=== PATIENT | male | born 1955 | race Caucasian/White ===

== ENCOUNTER 2024-05-24 13:24 | Emergency (ER) | payer OTHER ==
[2024-05-24] MEDS ORDERED: NA CHLORIDE 0.9% 1,000 ML ONE (14:16)
[2024-05-24] MEDS ORDERED: FOLIC ACID 5 MG/ML VIAL ONE (14:43)
[2024-05-24 14:46] LABS: Absolute Eosinophils 0.1 K/uL (0-0.5); Absolute Lymphocytes (CBC) 1.1 K/uL (0.7-4.9); Absolute Monocytes 0.6 K/uL (0.1-1.3); Basophils % 0.7 % (0-1.3); Eosinophils % 1.1 % (0-4.4); Hematocrit 42.5 % (39.6-49.0); Hemoglobin 14.4 g/dL (13.6-17.9); Lymphocytes % 23.2 % (15.3-44.8); MCH 32.1 pg (27.0-35.0); MCHC 33.8 g/dL (32.0-36.0); MCV 95.1 fL (80-100); MPV 8.5 fL (7.6-11.3); Monocytes % 13.3 % (3.3-12.3); Neutrophils % 61.7 % (41.7-73.7); Nucleated Red Blood Cells % 0.1 % (0-0); Platelets 160 thou/uL (152-406); RBC Red Blood Cell Count 4.47 M/uL (4.33-5.43); Red Cell Distribution Width 13.5 % (12.1-15.2)
[2024-05-24 14:48] LABS: PT Prothrombin Time 12.3 SECONDS (9.4-12.5); Protime INR 1.1
[2024-05-24 15:02] LABS: SARS-CoV-2 Antigen CONTROL BLUE LINE VIS/BG OK; SARS-CoV-2 Antigen Rapid Res Negative (Negative)
[2024-05-24 15:04] LABS: ALT/SGPT 19 U/L (16-61); AST/SGOT 15 U/L (15-37); Albumin 3.3 g/dL (3.4-5.0); Alkaline Phosphatase 109 U/L (45-117); Anion Gap 8.1 mEq/L (5.0-15.0); BUN Blood Urea Nitrogen 28 mg/dL (7-18); Bicarbonate 25 mEq/L (21-32); Bilirubin Total 0.4 mg/dL (0.2-1.0); Globulin 3.4 g/dL (2.3-3.5); Glomerular Filtration Rate 84 ml/min (=/>90); Glucose Level 124 mg/dL (74-106); Lipase 29 U/L (13-75); Magnesium 2.1 mg/dL (1.6-2.4); NT PRO-BNP 59 pg/mL (<125); Potassium 4.1 mEq/L (3.5-5.1); Protein, Total 6.7 g/dL (6.4-8.2); Sodium Level 137 mEq/L (136-145); Troponin High Sensitivity 7.1 pg/mL (<58.9)
[2024-05-24 15:05] LABS: Bilirubin Direct < 0.2 mg/dL (0-0.2); Bilirubin Indirect, Calculated 0.2 mg/dL (0.2-0.8)
--- NOTE | 2024-05-24 15:18 | RAD REPORT ---
EXAMINATION: ONE VIEW CHEST XR CLINICAL INDICATION: Male, 68 years old.,COUGH TECHNIQUE: Frontal chest projection is submitted. Examination is limited by patient positioning and t echnique. COMPARISON: No prior exam. FINDINGS: Right chest wall port in place. The lungs are well inflated and clear apart from mild diffuse reticul ar opacities which may reflect chronic interstitial changes of COPD. No pneumothorax or sizable effusion. The heart is normal in size. Mediastinal contours are unremarkable. IMPRESSION: No acute intrathoracic abnormalities. Findings as above.
--- NOTE | 2024-05-24 16:56 | RAD REPORT ---
EXAMINATION: MRI BRAIN WITHOUT CONTRAST CLINICAL INDICATION: Male, 68 years old.[facility] MAIN N WEAKNESS Bed Name: 20 TECHNIQUE: Multiplanar multisequence MR images of the brain were obtained without intravenous contras t. Unless otherwise specified, incidental findings do not require dedicated imaging follow-up. COMPARISON: No prior exam. FINDINGS: INTRACRANIAL: Midline structures are unremarkable. Diffusion-weighted images show no acute or early subacute infarction. There is mild brain atrophy with moderateT2/FLAIR hyperintensities in the periventricular and deep white matter regions, likely representing chronic microvascular ischemic itz nges. There is no mass effect or midline shift. No abnormal extraaxial fluid collection. VASCULATURE: Normal signal voids in the larger intracranial arteries and dural venous sinuses. SINUSES: The paranasal sinuses and mastoid air cells are predominantly clear. BONE: The marrow signal pattern is within normal limits. IMPRESSION: No significant intracranial abnormalities. Presumed chronic microvascular ischemic changes as above.
--- NOTE | 2024-05-24 17:21 | RAD REPORT ---
EXAMINATION: MRI LUMBAR SPINE WITHOUT CONTRAST CLINICAL INDICATION: Male, 68 years old. [facility] MAIN N PAIN Bed Name: 20 TECHNIQUE: Multiplanar multisequence MR images were obtained of the lumbar spine without IV gadoliniu m contrast. Unless otherwise specified, incidental findings do not require dedicated imaging follow-up. COMPARISON: No prior exam. FINDINGS: For purposes of this dictation, it is assumed that there are 5 non rib-bearing lumbar type vertebrae, with a transitional L5 vertebra, with asymmetric right transverse process enlargement. ALIGNMENT: The lumbar spine has normal alignment. BONE: Vertebral bodies are normal in height. There is a normal marrow signal pattern. Facet and endpl ate remodeling contribute to the findings below. CORD: No abnormal signal in the cord. The conus medullaris terminates at a normal level. The nerve ro ots of the cauda equina appear normal. SOFT TISSUE: The included paraspinal soft tissues and retroperitoneal structures are grossly normal. No abnormal masses or enhancement. EVALUATION OF THE INDIVIDUAL LEVELS: L1-2: Mild disc height loss and disc desiccation changes. Bilateral disc protrusions along the forami nal zones more so on the left, contributing to mild bilateral neural foraminal narrowing worse on the left. No central canal stenosis. L2-3: Mild broad-based disc bulge. Mild bilateral neural foraminal narrowing. L3-4: Central broad-based disc extrusion, which in addition to facet remodeling, and ligamentum flavu m buckling, contributes to mild overall central canal stenosis. Mild bilateral neural foraminal narrowing. L4-5: Moderate disc height loss. Circumferential disc bulge. Mild right more than left lateral recess narrowing, remainder of the canal is however patent. Up to moderate bilateral neural foraminal narrowing worse on the right. L5-S1: Diminutive disc space. No significant disc herniation or canal stenosis. IMPRESSION: No acute lumbar spine fracture or subluxation. Multilevel spondylotic changes as above, contributing to mild central canal stenosis at L3-4, and mary iable degrees of neural foraminal narrowing, up to moderate bilaterally at L4-5.
--- NOTE | 2024-05-24 17:26 | RAD REPORT ---
EXAMINATION: CTA HEAD CLINICAL INDICATION: Male, 68 years old. WEAKNESS TECHNIQUE: Axial CT images were obtained through the head after intravenous contrast utilizing angiog raphic protocol with 3D post-processing (maximum intensity projection images, volume rendered images and/or shaded surface rendered images). One or more of the following dose reduction technique s were used: Automated exposure control, adjustment of the mA and/or kV according to patient size, and/or iterative reconstruction. Unless otherwise specified, incidental findings do not require dedic ated imaging follow-up. COMPARISON: MRI brain of the same day FINDINGS: ICA: The petrous, cavernous, and supraclinoid segments of the bilateral internal carotid arteries are normal. IDALIA: Anterior cerebral arteries are normal bilaterally. The anterior communicating artery is patent. MCA: Middle cerebral arteries are normal bilaterally. SPACE ENGINEER: Posterior cerebral arteries are normal bilaterally. Vertebrobasilar: The vertebral arteries are patent. The basilar artery is normal in appearance. 3D images confirm these findings. IMPRESSION: Normal head CTA.
[2024-05-24 17:30] LABS: Specific Gravity 1.011 (1.005-1.030); Sqamous Epithelial None Seen /HPF (None Seen); Urine Bacteria None Seen /HPF (<20); Urine Bilirubin NEGATIVE (Negative); Urine Blood Negative (Negative); Urine Clarity Clear (Clear); Urine Color Colorless (Yellow); Urine Culture Reflex Order NOT NEEDED; Urine Glucose NEGATIVE (Negative); Urine Ketones NEGATIVE (Negative); Urine Microscopic Reflex YN ORDER UMIC; Urine Nitrite NEGATIVE (Negative); Urine Protein NEGATIVE (Negative); Urine RBC <5 /HPF (None Seen); Urine Urobilinogen Normal (Normal); Urine WBC <5 /HPF (<5); Urine pH 5.5 (5.0-7.0)
--- NOTE | 2024-05-24 17:40 | EDPHYS ---
Physician Documentation [facility] Name: Emeka Clifton Age: 68 yrs Sex: Male : 1955 Arrival Date: 05/24/2024 Time: 13:24 Bed 17 Private MD: ED Physician Vinicius De La Cruz HPI: 05/24 14:49 This 68 yrs old Male presents to ER via Wheelchair with complaints of Weakness itz - in left leg, General Weakness - In back. 14:49 The patient presents to the emergency department with weakness of the left lower itz extremity, difficult walking, the patient falls to the left. Onset: The symptoms/episode began/occurred 5 day(s) ago. Context: occurred. Historical: - Allergies: 13:40 No Known Allergies; tm6 - PMHx: 13:40 lymphoma; Kidney stone; tm6 - PSHx: 13:40 None; tm6 - Immunization history:: Client reports having NOT received the Covid vaccine. - Infectious Disease History:: Denies. - Social history:: Smoking status: Patient denies any tobacco usage or history of. ROS: 14:51 Constitutional: Negative for fever, chills, and weight loss, Eyes: Negative for injury, itz pain, redness, and discharge, ENT: Negative for injury, pain, and discharge, Neck: Negative for injury, pain, and swelling, Cardiovascular: Negative for chest pain, palpitations, and edema, Respiratory: Negative for shortness of breath, cough, wheezing, and pleuritic chest pain, Abdomen/GI: Negative for abdominal pain, nausea, vomiting, diarrhea, and constipation, Back: Negative for injury and pain, : Negative for injury, bleeding, discharge, and swelling, Skin: Negative for injury, rash, and discoloration, Psych: Negative for depression, anxiety, suicide ideation, homicidal ideation, and hallucinations, Allergy/Immunology: Negative for hives, rash, and allergies, Endocrine: Negative for neck swelling, polydipsia, polyuria, polyphagia, and marked weight changes, Hematologic/Lymphatic: Negative for swollen nodes, abnormal bleeding, and unusual bruising, 14:51 MS/extremity: Positive for decreased range of motion, paresthesias, of the left leg, Exam: 14:51 Constitutional: This is a well developed, well nourished patient who is awake, alert, itz and in no acute distress. Head/Face: Normocephalic, atraumatic. Eyes: Pupils equal round and reactive to light, extra-ocular motions intact. Lids and lashes normal. Conjunctiva and sclera are non-icteric and not injected. Cornea within normal limits. Periorbital areas with no swelling, redness, or edema. ENT: Nares patent. No nasal discharge, no septal abnormalities noted. Tympanic membranes are normal and external auditory canals are clear. Oropharynx with no redness, swelling, or masses, exudates, or evidence of obstruction, uvula midline. Mucous membranes moist. Neck: Trachea midline, no thyromegaly or masses palpated, and no cervical lymphadenopathy. Supple, full range of motion without nuchal rigidity, or vertebral point tenderness. No Meningismus. Chest/axilla: Normal chest wall appearance and motion. Nontender with no deformity. No lesions are appreciated. Cardiovascular: Regular rate and rhythm with a normal S1 and S2. No gallops, murmurs, or rubs. Normal PMI, no JVD. No pulse deficits. Respiratory: Lungs have equal breath sounds bilaterally, clear to auscultation and percussion. No rales, rhonchi or wheezes noted. No increased work of breathing, no retractions or nasal flaring. Abdomen/GI: Soft, non-tender, with normal bowel sounds. No distension or tympany. No guarding or rebound. No evidence of tenderness throughout. Back: No spinal tenderness. No costovertebral tenderness. Full range of motion. Male : Normal genitalia with no discharge or lesions. Skin: Warm, dry with normal turgor. Normal color with no rashes, no lesions, and no evidence of cellulitis. Neuro: Awake and alert, GCS 15, oriented to person, place, time, and situation. Cranial nerves II-XII grossly intact. Motor strength 5/5 in all extremities. Sensory grossly intact. Cerebellar exam normal. Normal gait. Psych: Awake, alert, with orientation to person, place and time. Behavior, mood, and affect are within normal limits. 14:51 ECG was reviewed by the Attending Physician. 14:51 Musculoskeletal/extremity: ROM: full passive range of motion, in the left leg, limited active range of motion, in the left leg, DVT Exam: No signs of deep vein thrombosis. no pain, no swelling, no tenderness, negative Homans' sign noted on exam, no appreciated bluish discoloration, no erythema, no increased warmth, 14:57 Back: pain, is absent, ROM is normal, normal spinal alignment noted, CVA tenderness, is itz absent, vertebral tenderness, is not appreciated, muscle spasm, is not present, 17:49 Neuro: Orientation: is normal, appropriate for stated age, no acute changes, Mentation: itz is normal, appropriate for stated age, no acute changes, Memory: is normal, appropriate for stated age, no acute changes, Cranial nerves: grossly normal, is grossly normal based on the patient's age, Cerebellar function: is grossly normal, is grossly normal based on the patient's age, Motor: Strength is 1/5 in the left leg, Sensation: no obvious gross deficits, appropriate no acute changes, numbness, tingling, Gait: LEFT LEG WEAKNESS, NO BOWEL OR BLADDER INVOLVMENT. seizure activity, is not displayed by the patient, Vital Signs: 13:39 BP 119 / 75; Pulse 86; Resp 18; Temp 99.2(O); Pulse Ox 99% on R/A; MAP 85 mmHg; Weight tm6 90.72 kg; Height 6 ft. 1 in. ; Pain 0/10; 17:43 BP 123 / 67; Pulse 71; Resp 18 S; Pulse Ox 99% on R/A; kc6 18:45 BP 144 / 82; Pulse 75; Resp 17 S; Pulse Ox 100% on R/A; kc6 19:04 BP 140 / 80; Pulse 74; Resp 18; Pulse Ox 100% on R/A; kj2 13:39 Body Mass Index 26.39 (90.72 kg, 185.42 cm) tm6 13:39 Pain Scale: Adult tm6 NIH Stroke Scale Scores: 13:40 NIHSS Score: 5 kc6 18:05 NIHSS Score: 4 itz MDM: 13:33 Medical Screening Exam initiated [facility] [place] 14:55 Data reviewed: vital signs, nurses notes, lab test result(s), EKG, radiologic studies, itz CT scan, MRI, plain films. Consideration of Admission/Observation Patient was admitted/placed on observation. Escalation of care including admission/observation considered. I considered the following discharge prescriptions or medication management in the emergency department Medications were administered in the Emergency Department. See MAR. Independent interpretation of the following test(s) in the Emergency Department EKG: See my EKG interpretation above. Test considered but Not performed: X-ray: NO CAROTID USG. Historians other than the Patient: Spouse/Significant Other: WELL INFORMED. Care significantly affected by the following chronic conditions: Chronic Kidney Disease, KIDNEY STONE, LYMPHOMA. 05/24 14:11 Order name: Basic Metabolic Panel; Complete Time: 15:34 [facility] [place] 05/24 14:11 Order name: CBC with Diff; Complete Time: 15:34 [facility] [place] 05/24 14:11 Order name: LFT's; Complete Time: 15:34 [facility] [place] 05/24 14:11 Order name: Magnesium; Complete Time: 15:34 [facility] [place] 05/24 14:11 Order name: NT PRO-BNP; Complete Time: 15:34 [facility] [place] 05/24 14:11 Order name: PT-INR; Complete Time: 15:34 [facility] [place] 05/24 14:11 Order name: Troponin HS; Complete Time: 15:34 [facility] [place] 05/24 14:11 Order name: Lipase; Complete Time: 15:34 [facility] [place] 05/24 14:11 Order name: Urinalysis w/ reflexes; Complete Time: 17:33 [facility] [place] 05/24 14:11 Order name: Flu; Complete Time: 15:34 [facility] [place] 05/24 14:11 Order name: SARS RAPID; Complete Time: 15:34 [facility] [place] 05/24 14:11 Order name: XRAY Chest (1 view); Complete Time: 15:34 [facility] [place] 05/24 14:11 Order name: MRI Lumbar Spine wo Con; Complete Time: 17:33 [facility] [place] 05/24 14:51 Order name: CT Head Angio; Complete Time: 17:33 [facility] [place] 05/24 14:51 Order name: CT Neck Angio; Complete Time: 17:47 [facility] [place] 05/24 16:21 Order name: Brain Wo Cont; Complete Time: 17:01 EDMI 05/24 17:02 Order name: Pelvis XRAY; Complete Time: 18:25 [facility] [place] 05/24 14:11 Order name: EKG; Complete Time: 14:11 [facility] [place] 05/24 14:11 Order name: Cardiac monitoring; Complete Time: 14:32 [facility] [place] 05/24 14:11 Order name: EKG - Nurse/Tech; Complete Time: 14:32 [facility] [place] 05/24 14:11 Order name: IV Saline Lock; Complete Time: 14:32 [facility] [place] 05/24 14:11 Order name: Labs collected and sent; Complete Time: 14:32 itz 05/24 14:11 Order name: O2 Per Protocol; Complete Time: 14:13 itz 05/24 14:11 Order name: O2 Sat Monitoring; Complete Time: 14:13 itz EC:51 Rate is 67 beats/min. Rhythm is regular. QRS [place] is Normal. HI interval is normal. QT itz interval is normal. No Q waves. T waves are Normal. No ST changes noted. Clinical impression: Normal ECG and No evidence of ischemia. Interpreted by me. Reviewed by me. Administered Medications: 14:32 Drug: NS 0.9% IV 1000 ml IV at 1000 ml once; to be given as a bolus over 60 minutes kc6 Route: IV; Rate: 1000 ml; Site: right forearm; 18:21 Follow up: Response: No adverse reaction; IV Status: Completed infusion; IV Intake: kc6 1000ml 14:46 Drug: foLIC Acid IVPB 1 mg IVPB once Route: IVPB; Site: right antecubital; kc6 17:43 Follow up: Response: No adverse reaction; IV Status: Completed infusion; IV Intake: kc6 0.2ml 18:21 Drug: Decadron - Dexamethasone IVP 10 mg IVP once Route: IVP; Site: right forearm; kc6 18:45 Follow up: Response: No adverse reaction kc6 Disposition Summary: 05/24/24 17:40 Transfer Ordered Notes: Transfer Location: [facility] itz Reason: Higher level of care itz Condition: Stable itz Problem: new itz Symptoms: are unchanged itz Accepting Physician: TO [facility](05/24/24 19:30) kj2 Diagnosis - Weakness - LEF LEG PARALYSIS, HX OF LYMPHOMA, 5 DAYS itz Forms: - Medication Reconciliation Form itz - SBAR form itz NIH Stroke Scale - NIH Stroke Score Date: 05/24/2024 Time: 13:40 Total Score = 5 10. Dysarthria (speech clarity - read or repeat words) - 0(Normal) 11. Extinction and Inattention (visual/tactile/auditory/spatial/personal) - 0(No abnormality) 1a. Level of Consciousness (LOC) - 0(Alert) 1b. Level of Consciousness (LOC) (Month \T\ Age) - 0(Both) 1c. LOC Commands (Open \T\ Closes Eyes/Loss Prevention Analyst) - 0(Both) 2. Best Gaze (Lateral Gaze Paresis) - 0(Normal) 3. Visual Field Loss - 0(No visual loss) 4. Facial Palsy - 0(Normal) 5a. Left Arm: Motor (10-second hold) - 0(No drift) 5b. Right Arm: Motor (10-second hold) - 0(No drift) 6a. Left Leg: Motor (5-second hold - always test supine) - 4(No movement) 6b. Right Leg: Motor (5-second hold - always test supine) - 0(No drift) 7. Limb Ataxia (finger/nose \T\ heel/robins - test with eyes open) - 1(Present in one limb) 8. Sensory Loss (pinprick arms/legs/face) - 0(Normal) 9. Best Language: Aphasia (description/naming/reading) - 0(No aphasia) Initials: kc6 NIH Stroke Scale - NIH Stroke Score Date: 05/24/2024 Time: 18:05 Total Score = 4 10. Dysarthria (speech clarity - read or repeat words) - 0(Normal) 11. Extinction and Inattention (visual/tactile/auditory/spatial/personal) - 0(No abnormality) 1a. Level of Consciousness (LOC) - 0(Alert) 1b. Level of Consciousness (LOC) (Month \T\ Age) - 0(Both) 1c. LOC Commands (Open \T\ Closes Eyes/Loss Prevention Analyst) - 0(Both) 2. Best Gaze (Lateral Gaze Paresis) - 0(Normal) 3. Visual Field Loss - 0(No visual loss) 4. Facial Palsy - 0(Normal) 5a. Left Arm: Motor (10-second hold) - 0(No drift) 5b. Right Arm: Motor (10-second hold) - 0(No drift) 6a. Left Leg: Motor (5-second hold - always test supine) - 4(No movement) 6b. Right Leg: Motor (5-second hold - always test supine) - 0(No drift) 7. Limb Ataxia (finger/nose \T\ heel/robins - test with eyes open) - 0(Absent) 8. Sensory Loss (pinprick arms/legs/face) - 0(Normal) 9. Best Language: Aphasia (description/naming/reading) - 0(No aphasia) Initials: itz Signatures: Dispatcher [employer] EDMS Vinicius De La Cruz MD MD cha Campbell, Kaitlyn, RN RN kc6 Poonam Bob, RN RN tm6 Rosemarie Kuo, RN RN kj2 Corrections: (The following items were deleted from the chart) 14:51 14:51 Neck Angio+CT.RAD.BRZ ordered. EDMS EDMS 16:21 14:34 MR STROKE PROTOCOL+MRI.RAD.BRZ ordered. EDMS EDMS 17:53 17:40 TO [facility] itz itz 17:54 17:53 TO [facility] itz itz 17:54 17:53 Abnormal findings on diagnostic imaging of other specified body itz structures - MULTIPLE NODULES, PULMONARY itz 17:54 17:53 Edema, unspecified itz itz 19:30 17:54 TO [facility] itz kj2
--- NOTE | 2024-05-24 17:40 | ER ---
Nurse's Notes [facility] Name: Emeka Clifton Age: 68 yrs Sex: Male : 1955 Arrival Date: 05/24/2024 Time: 13:24 Bed 17 Private MD: Diagnosis: Weakness-LEF LEG PARALYSIS, HX OF LYMPHOMA, 5 DAYS Presentation: 05/24 13:39 Chief complaint: Patient states: weak in the left leg since , burning pain in tm6 left tricep, sores on back. Coronavirus screen: Client denies travel out of the [place] in the last 14 days. Ebola Screen: Patient negative for fever greater than or equal to 101.5 degrees Fahrenheit, and additional compatible Ebola Virus Disease symptoms Patient denies exposure to infectious person. Patient denies travel to an Ebola-affected area in the 21 days before illness onset. No symptoms or risks identified at this time. Initial Sepsis Screen: Does the patient meet any 2 criteria? No. Patient's initial sepsis screen is negative. Does the patient have a suspected source of infection? No. Patient's initial sepsis screen is negative. Risk Assessment: Do you want to hurt yourself or someone else? Patient reports no desire to harm self or others. Onset of symptoms was May 20, 2024. 13:39 Method Of Arrival: Wheelchair tm6 13:39 Acuity: CHEVY 3 tm6 19:05 Pre-hospital glucose is not applicable to this patient. kj2 19:08 No acute neurological deficit is noted. kj2 Triage Assessment: 13:40 General: Appears in no apparent distress. Behavior is calm, cooperative. Pain: tm6 Complains of pain in left tricep Pain currently is 0 out of 10 on a pain scale. at worst was 5 out of 10 on a pain scale. Quality of pain is described as burning, Pain began . EENT: No signs and/or symptoms were reported regarding the EENT system. Neuro: Level of Consciousness is awake, alert, obeys commands, Oriented to person, place, time, situation, Reports weakness in left leg. Cardiovascular: Patient's skin is warm and dry. Respiratory: Airway is patent Respiratory effort is even, unlabored, Respiratory pattern is regular, symmetrical. GI: No signs and/or symptoms were reported involving the gastrointestinal system. Abdomen is flat, non-distended. : No signs and/or symptoms were reported regarding the genitourinary system. Derm: No signs and/or symptoms reported regarding the dermatologic system. Musculoskeletal: Reports weakness in left tricep and left leg since . 19:28 The onset of the patients symptoms was May 21, 2024 at 10:00. kj2 Historical: - Allergies: 13:40 No Known Allergies; tm6 - PMHx: 13:40 lymphoma; Kidney stone; tm6 - PSHx: 13:40 None; tm6 - Immunization history:: Client reports having NOT received the Covid vaccine. - Infectious Disease History:: Denies. - Social history:: Smoking status: Patient denies any tobacco usage or history of. Screenin:40 [facility] ED Fall Risk Assessment (Adult) History of falling in the last 3 months, kc6 including since admission No falls in past 3 months (0 pts) Confusion or Disorientation No (0 pts) Intoxicated or Sedated No (0 pts) Impaired Gait Yes (1 pt) Mobility Assist Device Used No (0 pt) Altered Elimination No (0 pt) Score/Fall Risk Level 0 - 2 = Low Risk Oriented to surroundings, Maintained a safe environment, Educated pt \T\ family on fall prevention, incl call for assistance when getting out of bed. Abuse screen: Denies threats or abuse. Denies injuries from another. Nutritional screening: No deficits noted. Tuberculosis screening: No symptoms or risk factors identified. Assessment: 13:40 VAN Scoring: Arm Drift: Patients demonstrates NO arm weakness. Patient is VAN Negative. kc6 Visual Disturbance: No visual disturbance noted. Aphasia: No aphasia noted. Neglect: No neglect noted. [place] Swallow Protocol Exclusion Criteria: Unable to remain alert for testing: No NPO for medical/surgical reason by provider order No Tracheostomy tube present No No thin liquids due to preexisting dysphagia/baseline modified diet thickened liquids No Exclusion Criteria Result: Proceed Brief Cognitive Screen What is your name? Normal, Where are you right now? Normal, What year is it? Normal. Oral Mechanism Examination Facial Symmetry: Normal, Motion: Normal, Lip Closure: Normal, Oral Mechanism Result: Normal. 3 oz Water Swallow Challenge: Pt able to drink all water without stopping, coughing, choking or throat clearing: Yes Result: GILBERT ELLIS Notified: Vinicius De La Cruz MD. 13:40 General: Appears in no apparent distress. comfortable, well groomed, well developed, kc6 Behavior is calm, cooperative, appropriate for age. Pain: Denies pain. Neuro: Level of Consciousness is awake, alert, obeys commands, Oriented to person, place, time, situation, Appropriate for age Surgical Orderly are equal bilaterally Weakness in left leg(s) Gait is unsteady, Speech is normal, Facial symmetry appears normal, Pupils are PERRLA, Intact Babinski is positive. Cardiovascular: Capillary refill < 3 seconds. Respiratory: Airway is patent Trachea midline Respiratory effort is even, unlabored, Respiratory pattern is regular, symmetrical. GI: No signs and/or symptoms were reported involving the gastrointestinal system. : No signs and/or symptoms were reported regarding the genitourinary system. EENT: No signs and/or symptoms were reported regarding the EENT system. Derm: No signs and/or symptoms reported regarding the dermatologic system. Skin is intact, is healthy with good turgor, Skin is pink, warm \T\ dry. Musculoskeletal: Capillary refill < 3 seconds, Range of motion: limited in left leg. 14:40 Reassessment: Patient appears in no apparent distress at this time. No changes from kc6 previously documented assessment. Patient and/or family updated on plan of care and expected duration. Pain level reassessed. Patient is alert, oriented x 3, equal unlabored respirations, skin warm/dry/pink. 15:41 Reassessment: Patient appears in no apparent distress at this time. No changes from kc6 previously documented assessment. Patient and/or family updated on plan of care and expected duration. Pain level reassessed. Patient is alert, oriented x 3, equal unlabored respirations, skin warm/dry/pink. 16:41 Reassessment: Patient appears in no apparent distress at this time. No changes from kc6 previously documented assessment. Patient and/or family updated on plan of care and expected duration. Pain level reassessed. Patient is alert, oriented x 3, equal unlabored respirations, skin warm/dry/pink. 17:00 Reassessment: pt reports muscle spasms with involuntary movement to the LLE at this kc6 time. Dr. De La Cruz made aware. 17:43 Reassessment: Patient appears in no apparent distress at this time. No changes from kc6 previously documented assessment. Patient and/or family updated on plan of care and expected duration. Pain level reassessed. Patient is alert, oriented x 3, equal unlabored respirations, skin warm/dry/pink. 18:27 Reassessment: Dr. De La Cruz at bedside speaking with pt and family. kc6 18:31 Reassessment: attempted to call report to [facility]. on hold for 6min for nurse. kc6 18:45 Reassessment: Patient appears in no apparent distress at this time. No changes from kc6 previously documented assessment. Patient and/or family updated on plan of care and expected duration. Pain level reassessed. Patient is alert, oriented x 3, equal unlabored respirations, skin warm/dry/pink. 18:51 Reassessment: attempted to call report to [facility]. sr community manager states that it kc6 is shift change and the room is not clean at this time. informed that I attempted to call earlier and was put on hold and that the pt is coming from an hour away. placed on hold for min with no answer. [phone]. 19:04 Reassessment: Patient appears in no apparent distress at this time. Patient and/or kj2 family updated on plan of care and expected duration. Pain level reassessed. Patient is alert, oriented x 3, equal unlabored respirations, skin warm/dry/pink. 19:06 TNKase (Tenecteplase) Screening: Not Applicable. kj2 Vital Signs: 13:39 BP 119 / 75; Pulse 86; Resp 18; Temp 99.2(O); Pulse Ox 99% on R/A; MAP 85 mmHg; Weight tm6 90.72 kg; Height 6 ft. 1 in. ; Pain 0/10; 17:43 BP 123 / 67; Pulse 71; Resp 18 S; Pulse Ox 99% on R/A; kc6 18:45 BP 144 / 82; Pulse 75; Resp 17 S; Pulse Ox 100% on R/A; kc6 19:04 BP 140 / 80; Pulse 74; Resp 18; Pulse Ox 100% on R/A; kj2 13:39 Body Mass Index 26.39 (90.72 kg, 185.42 cm) tm6 13:39 Pain Scale: Adult tm6 NIH Stroke Scale Scores: 13:40 NIHSS Score: 5 kc6 18:05 NIHSS Score: 4 itz ED Course: 13:27 Patient arrived in ED. im 13:31 Alyx James, SANDER is Primary Nurse. kc6 13:33 Vinicius De La Cruz MD is Attending Physician. itz 13:40 Triage completed. tm6 13:40 Arm band placed on right wrist. tm6 14:32 Patient has correct armband on for positive identification. Bed in low position. Call kc6 light in reach. Side rails up X 1. Adult w/ patient. Pulse ox on. NIBP on. Door closed. Noise minimized. Lights dimmed. Pillow given. 14:32 Inserted saline lock: 20 gauge in right forearm, using aseptic technique. Blood kc6 collected. Flushed with 10 mL NS. Patient maintains SpO2 saturation greater than 95% on room air. 14:52 XRAY Chest (1 view) In Process Unspecified. EDMS 16:22 MRI Lumbar Spine wo Con In Process Unspecified. EDMS 16:22 CT Head Angio In Process Unspecified. EDMS 16:22 CT Neck Angio In Process Unspecified. EDMS 16:32 Brain Wo Cont In Process Unspecified. EDMS 17:23 Pelvis XRAY In Process Unspecified. EDMS 17:37 transfer initiated to [facility] by dr de la cruz. bd 18:59 Report given to Devorah Kuo RN. kc6 19:00 Report received from SANDER Wisdom. kj2 19:06 Provided Education on: call light. kj2 19:07 No provider procedures requiring assistance completed. kj2 19:28 Patient transferred, IV remains in place. kj2 Administered Medications: 14:32 Drug: NS 0.9% IV 1000 ml IV at 1000 ml once; to be given as a bolus over 60 minutes kc6 Route: IV; Rate: 1000 ml; Site: right forearm; 18:21 Follow up: Response: No adverse reaction; IV Status: Completed infusion; IV Intake: kc6 1000ml 14:46 Drug: foLIC Acid IVPB 1 mg IVPB once Route: IVPB; Site: right antecubital; kc6 17:43 Follow up: Response: No adverse reaction; IV Status: Completed infusion; IV Intake: kc6 0.2ml 18:21 Drug: Decadron - Dexamethasone IVP 10 mg IVP once Route: IVP; Site: right forearm; kc6 18:45 Follow up: Response: No adverse reaction kc6 Medication: 19:05 VIS not applicable for this client. kj2 Intake: 17:43 IV: 0ml; Total: 0ml. kc6 18:21 IV: 1000ml; Total: 1000ml. kc6 Outcome: 17:40 ER care complete, transfer ordered by MD. mobley 19:27 Transferred by ground EMS to [facility], [facility], kj2 19:27 Condition: stable 19:27 Instructed on the need for transfer, 19:30 Patient left the ED. kj2 NIH Stroke Scale - NIH Stroke Score Date: 05/24/2024 Time: 13:40 Total Score = 5 10. Dysarthria (speech clarity - read or repeat words) - 0(Normal) 11. Extinction and Inattention (visual/tactile/auditory/spatial/personal) - 0(No abnormality) 1a. Level of Consciousness (LOC) - 0(Alert) 1b. Level of Consciousness (LOC) (Month \T\ Age) - 0(Both) 1c. LOC Commands (Open \T\ Closes Eyes/Triple Valve Mechanic) - 0(Both) 2. Best Gaze (Lateral Gaze Paresis) - 0(Normal) 3. Visual Field Loss - 0(No visual loss) 4. Facial Palsy - 0(Normal) 5a. Left Arm: Motor (10-second hold) - 0(No drift) 5b. Right Arm: Motor (10-second hold) - 0(No drift) 6a. Left Leg: Motor (5-second hold - always test supine) - 4(No movement) 6b. Right Leg: Motor (5-second hold - always test supine) - 0(No drift) 7. Limb Ataxia (finger/nose \T\ heel/robins - test with eyes open) - 1(Present in one limb) 8. Sensory Loss (pinprick arms/legs/face) - 0(Normal) 9. Best Language: Aphasia (description/naming/reading) - 0(No aphasia) Initials: kc6 NIH Stroke Scale - NIH Stroke Score Date: 05/24/2024 Time: 18:05 Total Score = 4 10. Dysarthria (speech clarity - read or repeat words) - 0(Normal) 11. Extinction and Inattention (visual/tactile/auditory/spatial/personal) - 0(No abnormality) 1a. Level of Consciousness (LOC) - 0(Alert) 1b. Level of Consciousness (LOC) (Month \T\ Age) - 0(Both) 1c. LOC Commands (Open \T\ Closes Eyes/Triple Valve Mechanic) - 0(Both) 2. Best Gaze (Lateral Gaze Paresis) - 0(Normal) 3. Visual Field Loss - 0(No visual loss) 4. Facial Palsy - 0(Normal) 5a. Left Arm: Motor (10-second hold) - 0(No drift) 5b. Right Arm: Motor (10-second hold) - 0(No drift) 6a. Left Leg: Motor (5-second hold - always test supine) - 4(No movement) 6b. Right Leg: Motor (5-second hold - always test supine) - 0(No drift) 7. Limb Ataxia (finger/nose \T\ heel/robins - test with eyes open) - 0(Absent) 8. Sensory Loss (pinprick arms/legs/face) - 0(Normal) 9. Best Language: Aphasia (description/naming/reading) - 0(No aphasia) Initials: itz Signatures: Dispatcher [employer] Vane Banks Corey, MD MD cha Campbell, Kaitlyn, RN RN kc6 Priyanka Alas Tawney RN RN tm6 Rosemarie Kuo RN RN kj2 Corrections: (The following items were deleted from the chart) 19:30 19:28 The onset of the patients symptoms was more than six hours ago kj2 kj2
--- NOTE | 2024-05-24 17:41 | RAD REPORT ---
EXAMINATION: CT Neck Angio CLINICAL INDICATION: Male, 68 years old. [facility] MAIN PAIN Bed Name: 20 TECHNIQUE: Axial CT images were obtained from the aortic arch to the skull base after intravenous con trast utilizing angiographic protocol. Multiplanar reformats, as well as 3D post-processing (maximum intensity projection images, volume rendered images and/or shaded surface rendered images) w ere generated and reviewed. One or more of the following dose reduction techniques were used: Automated exposure control, adjustment of the mA and/or kV according to patient size, and/or iterativ e reconstruction. Unless otherwise specified, incidental findings do not require dedicated imaging follow-up. COMPARISON: No prior exam. FINDINGS: AORTA: The imaged aortic arch is normal. Normal three-vessel configuration of the arch. CCA: No artifact The common carotid arteries are patent and normal in caliber. ICA/ECA: Bilateral internal and external carotid arteries are patent. There is no significant interna l carotid artery stenosis. VERTEBRAL: The cervical vertebral arteries are patent to the skull base. Vertebral arteries are codom inant. SOFT TISSUE: No significant neck soft tissue abnormalities. The visualized lung apices are clear. 3D images confirm these findings. IMPRESSION: No significant flow abnormality of the neck vessels is identified. NASCET criteria used to quantify ICA stenosis, with the following grading scheme: Mild 0-49% stenosis Moderate 50-69% stenosis Severe 70-99% stenosis Reference: [place] Symptomatic Carotid Endarterectomy Trial Collaborators; Dante GARCIA, Kirstie GOMEZ, Dulce RB, et al. Beneficial effect of carotid endarterectomy in symptomatic patients with high-grade carotid stenosis. N Engl J Med. 1990Feb 11;325(7):445-53.
[2024-05-24] MEDS ORDERED: dexAMETHasone 10 MG/ML VIAL ONE (17:59)
--- NOTE | 2024-05-24 18:14 | RAD REPORT ---
EXAMINATION: XR PELVIS CLINICAL INDICATION: Male, 68 years old. [facility] MA[facility] PA[facility] Bed Name: 20 TECHNIQUE: AP Pelvis radiograph was obtained. COMPARISON: No prior exam. FINDINGS: No evidence of fracture or dislocation. Normal alignment. Mild to moderate right degenerati ve changes with some joint space loss. Osseous spinal on the right at the femoral head/neck junction. Subchondral cystic changes on the right. No evidence of AVN. Soft tissues are unremarkable. IMPRESSION: No acute or significant abnormalities. 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
[2024-05-25 00:31] VITALS: TEMP 99.2
[2024-05-25 00:43] VITALS: O2SAT 100
[2024-05-25 00:48] VITALS: BP 140/80
--- NOTE | 2024-05-26 11:39 | EKG ---
Test Date: 2024-05-24 Test Time: 14:21:11 Materials Assistant: CONNER MEASUREMENT RESULTS: Intervals: Rate: 67 ID: [id number] QRSD: 86 QT: 378 QTc: 399 [place]: P: 73 ID: [id number] QRS: 69 T: 71 INTERPRETIVE STATEMENTS: Normal sinus rhythm Normal ECG No previous ECG available for comparison Electronically Signed On 05-26-24 11:34:22 TRAVEL ASSISTANT by Owen Cuevas
== END 2024-05-24 19:30 | disposition short-term general hospital (02) ==
LOC: ER 13:24
DX: G81.94 Hemiplegia, unspecified affecting left nondominant side (principal); Z85.72 Personal history of non-Hodgkin lymphomas; Z11.52 Encounter for screening for COVID-19
CPT/HCPCS: 85025; 81001; 80048; 36415; 83735; 85610; 80076; 84484; 83690; 83880; 87804 ×2; 70496; 70498; 71045; 72170; 70551; 72148; 87811; Q9967; J1100; J7030; 93005; 96361; 96365; 96366; 96375; 99285